=== PATIENT | male | born 1990 | race African-American/Black ===

== ENCOUNTER 2018-05-23 12:31 | Outpatient (CLI) ==
--- NOTE | 2018-05-23 13:13 | DI ---
EXAM: Three views of the left foot. History: Left foot pain. Findings: No acute fracture or dislocation. No abnormal calcifications or radiopaque foreign bodies . Joint spaces are preserved. Impression: No acute osseous abnormality.
== END 2018-05-23 12:32 | disposition home or self-care (01) ==
LOC: RAD 12:31
PROVIDERS: ATTEND Emergency Medicine
DX: M79.672 Pain in left foot (principal); R03.0 Elevated blood-pressure reading, without diagnosis of hypertension; E66.9 Obesity, unspecified; I10 Essential (primary) hypertension
CPT/HCPCS: 36415; 80053; 80061; 84443; 85025